=== PATIENT | male | born 1995 | race Caucasian/White ===

== ENCOUNTER 2018-11-26 14:11 | Inpatient (IN) | payer OTHER ==
[~2018-11-26] VITALS: Ht 170.2 cm; Wt 72.8 kg
[2018-11-26] MEDS ORDERED: NICOTINE 21MG/24HR 1 EA TRANSDERMAL TD ONE (14:30)
[2018-11-26 15:10] LABS: HEMATOCRIT 42.7 % (42.0-52.0); HEMOGLOBIN 14.1 g/dl (13.5-17.5); MEAN CORPUSCULAR HEMOGLOBIN 29.6 pg (27.0-33.0); MEAN CORPUSCULAR VOLUME 89.7 fl (80.0-96.0); PLATELET COUNT, AUTOMATED 246 10^3/uL (150-450); RED BLOOD COUNT 4.76 10^6/uL (4.30-6.10); WHITE BLOOD COUNT 5.3 10^3/uL (4.0-10.0)
[2018-11-26 15:29] LABS: AMPHETAMINES LEVEL URINE NEGATIVE (NEGATIVE); BARBITURATES URINE NEGATIVE (NEGATIVE); BENZODIAZEPINES URINE NEGATIVE (NEGATIVE); CANNABINOIDS URINE NEGATIVE (NEGATIVE); COCAINE METABOLITE URINE NEGATIVE (NEGATIVE); METHADONE URINE NEGATIVE (NEGATIVE); OPIATES URINE NEGATIVE (NEGATIVE); PHENCYCLIDINE URINE NEGATIVE (NEGATIVE)
[2018-11-26 15:47] LABS: ACETAMINOPHEN LEVEL < 2.0 UG/ML (10.0-30.0); ALBUMIN 3.9 GM/DL (3.2-5.2); ALT/SGPT 19 U/L (12-78); BILIRUBIN,DIRECT < 0.1 MG/DL (0.0-0.2); BILIRUBIN,TOTAL 0.3 MG/DL (0.2-1.0); BLOOD UREA NITROGEN 18 MG/DL (7-18); CALCIUM LEVEL 8.7 MG/DL (8.5-10.1); CARBON DIOXIDE LEVEL 28 MEQ/L (21-32); CHLORIDE LEVEL 108 MEQ/L (98-107); CREATININE FOR GFR 1.07 MG/DL (0.70-1.30); ETHYL ALCOHOL (ETHANOL) < 0.003 % (0.000-0.010); GLUCOSE, FASTING 118 MG/DL (70-100); POTASSIUM SERUM 4.1 MEQ/L (3.5-5.1); SALICYLATE LEVEL < 1.7 MG/DL (5.0-30.0); SODIUM LEVEL 142 MEQ/L (136-145); THYROID STIMULATING HORMONE 0.841 uIU/ML (0.463-3.98); TOTAL PROTEIN 6.9 GM/DL (6.4-8.2)
[2018-11-26] MEDS ORDERED: ACETAMINOPHEN TAB 650MG DOSE (2X325MG) PO PRN (16:30)
[2018-11-26] MEDS ORDERED: MAALOX 30 ML SUSP *UDC PO PRN (16:30)
[2018-11-26] MEDS ORDERED: MOM 30ML SUSPENSION UDC PO PRN (16:30)
[2018-11-26] MEDS ORDERED: IBUPOTC PO (16:50)
[2018-11-26 18:30] VITALS: BP 127/71
[2018-11-26] MEDS: traZODone 50 MG TAB PO PRN (21:50)
[2018-11-27 06:00] VITALS: BP 108/60
[2018-11-27] MEDS: NICOTINE 21MG/24HR 1 EA TRANSDERMAL TD SCH (10:05)
--- NOTE | 2018-11-27 10:13 | HPEPDOC ---
[facility] Medical History & Physical Date of Admission Nov 26, 2018 History and Physical PCP: [facility] ATTENDING: Dr. Iman Stephenson HPI: 22[facility]M [facility] for unspecified depressive disorder, being medically examined today. No acute medical complaints today. Reported attempting suicide 2 days ago by hanging. States he was hanging and had LOC but woke up on the floor. Denies dysarthria, dysphagia, neck pain. Denies any fevers, chills, weakness, fatigue, DAY, CP, SOB, cough, palpitations, abdominal pain, N/V/D or changes in bowel or bladder habits. PMHx: anxiety depression H/O SI/SA 2 days ago, hanging. PSHX: denies SOCHX: Resides in: [facility], from [facility]. Marital Status: single Kids: none Employment: Active duty Tobacco use: 1 ppd ETOH: 2-3 times per week 15-20 drinks Illicit Drugs: Denies IV Drug Use: Denies Tattoos done unprofessionally: Denies FAMHX: Mother: Alive, well Father: unknown Siblings: Alive, well Children: Alive, well Unexpected deaths due to medical reasons: None. ROS: As noted in HPI, otherwise 11pt ROS of systems reviewed and remarkable only for remarkable for superficial laceration left AC, pt states he tried to cut himself prior to hanging. PE: GEN: 22yoM, appears stated age. Well-nourished, well developed. No acute distress. Alert and oriented x 3. Pleasant, interactive. HEENT: Normocephalic, atraumatic. Pupils are equal, round, and reactive to light. Extraocular movements are intact. No nystagmus appreciated. Sclera are nonicteric. Conjunctiva without injection. Nose midline. Nasal turbinates without bogginess. EACs both patent BL. TMs both visualized and guido with good cone of light, no bulging or erythema. No facial asymmetry. Moist mucous mem branes. Dentition fair. Pharynx pink and moist, no cobblestoning. Neck supple, trachea midline. No lymphadenopathy or thyromegaly appreciated. CHEST: Regular rate and rhythm, +S1, +S2 LUNGS: Clear to auscultation bilaterally. No wheezes, rales, or rhonchi. Breathing appears symmetric and easy. Patient is speaking in full sentences. No accessory muscle use. ABD: Round, soft, non-tender, non-distended. +Bowel sounds throughout. No rebound or guarding. No costovertebral angle tenderness. EXT: Pulses 2+ bilaterally dorsalis pedis and radial. No lower extremity edema appreciated. SKIN: [place], dry, warm. Capillary refill <2sec. No rashes. superficial laceration noted Rt AC area. NEURO: Alert and oriented x 3. Cranial nerves III-XII are intact. No focal deficits appreciated. EKG: pending A&P: 22yoM [facility] for unspecified depressive disorder 1. Psych. Plan per Psychiatry. Obtain baseline EKG to assure the safety of psychiatric medications as they can prolong the QT interval. 2. Nicotine dependence. Patch available. 3. Attempted hanging, Pt states he woke up on the floor. Denies neck pain, dysarthria, dysphagia. There is no pain or TTP over the cervical spine. No ecchymotic area or petechiae noted. Will check CT C spine. 4. Follow up with PCP on discharge. 5. Staff member Galdino present throughout exam. Vital Signs Vital Signs Date Time Temp Pulse Resp B/P (MAP) Pulse Ox O2 Delivery O2 Flow Rate FiO2 11/27/18 06:00 97.9 67 12 108/60 (76) 11/26/18 18:30 99 Laboratory Data Labs 24H Laboratory Tests 2 11/26/18 14:57: Anion Gap 6L, Calcium Level 8.7, Aspartate Amino Transf (AST/SGOT) 12, Alanine Aminotransferase (ALT/SGPT) 19, Alkaline Phosphatase 100, Total Bilirubin 0.3, Direct Bilirubin < 0.1, Total Protein 6.9, Albumin 3.9, Albumin/Globulin Ratio 1.30, Thyroid Stimulating Hormone (TSH) 0.841, Salicylates Level < 1.7L, Urine Amphetamines Screen NEGATIVE, Urine Benzodiazepines Screen NEGATIVE, Urine Opiates Screen NEGATIVE, Urine Methadone Screen NEGATIVE, Acetaminophen Level < 2.0L, Urine Barbiturates Screen NEGATIVE, Urine Phencyclidine Screen NEGATIVE, Urine Cocaine Metabolite Screen NEGATIVE, Urine Cannabinoids Screen NEGATIVE, Ethyl Alcohol Level < 0.003 11/26/18 14:58: Nucleated Red Blood Cells % (auto) 0.0 CBC/BMP Laboratory Tests 11/26/18 14:57 11/26/18 14:58 Red Blood Count 4.76, Mean Corpuscular Volume 89.7, Mean Corpuscular Hemoglobin 29.6, Mean Corpuscular Hemoglobin Concent 33.0, Red Cell Distribution Width 12.8 Home Medications Scheduled PRN Ibuprofen (Ibuprofen) 200 Mg Tab, 600 MG PO Q6H PRN for PAIN Allergies Coded Allergies: No Known Allergies (Unverified , 11/26/18) Shanel Henry Nov 27, 2018 10:13
--- NOTE | 2018-11-27 11:00 | REP ---
CT cervical spine without contrast HISTORY: Attempted hanging COMPARISON: None There is no acute fracture or subluxation. There is no disc bulge or herniation. The spinal canal and neural foramina are patent. The intervertebral discs and vertebral bodies are normal in height. IMPRESSION: There is no acute fracture or subluxation. Electronically Signed by Yfn Coley MD 11/27/2018 10:51 A
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
--- NOTE | 2018-11-27 17:46 | ECGEPIP ---
Stationary ECG Study [facility] Test Date: 2018-11-27 Pat Name: HOLLY CLEMENTS Department: Room: [place] [address] Gender: M Research Editor: CORWIN : 1995 Requested By: Shanel Henry Order Number: [id number] Reading MD: Abhishek Rdz Measurements Intervals [place] Rate: 72 P: 68 RI: 155 QRS: 61 QRSD: 82 T: 57 QT: 326 QTc: 359 Interpretive Statements Normal sinus rhythm with sinus arrhythmia Incomplete right bundle branch block, likely physiologic for age Early repolarization Comparison tracing not available Electronically Signed On 11-27-2018 17:46:06 EDT by Abhishek Rdz
[2018-11-27 18:17] VITALS: BP 112/61
[2018-11-27] MEDS: traZODone 50 MG TAB PO PRN (22:36)
[2018-11-27] MEDS: PRAZOSIN 1 MG CAP PO SCH (22:36)
[2018-11-28 06:40] VITALS: BP 83/51
[2018-11-28] MEDS: NICOTINE 21MG/24HR 1 EA TRANSDERMAL TD SCH ×2 (09:00→14:16)
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
[2018-11-28] MEDS ORDERED: SERTRALINE HCL 25 MG TABLET PO ONE (09:45)
[2018-11-28] MEDS ORDERED: traZODone 100 MG TAB PO PRN (09:45)
[2018-11-28 18:00] VITALS: BP 138/54
[2018-11-28] MEDS: PRAZOSIN 1 MG CAP PO SCH (22:01)
[2018-11-29 06:23] VITALS: BP 120/52
[2018-11-29] MEDS: NICOTINE 21MG/24HR 1 EA TRANSDERMAL TD SCH (08:35)
[2018-11-29] MEDS: SERTRALINE HCL 25 MG TABLET PO SCH (08:35)
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
[2018-11-29 18:00] VITALS: BP 125/60
[2018-11-29] MEDS ORDERED: QUEtiapine FUMARATE 25 MG TAB PO SCH (21:00)
[2018-11-29] MEDS: PRAZOSIN 1 MG CAP PO SCH (21:34)
[2018-11-30 06:28] VITALS: BP 103/56
[2018-11-30] MEDS: SERTRALINE HCL 25 MG TABLET PO SCH (08:34)
[2018-11-30] MEDS: NICOTINE 21MG/24HR 1 EA TRANSDERMAL TD SCH (08:34)
[2018-11-30 18:15] VITALS: BP 120/72
[2018-11-30] MEDS: MIRTAZAPINE 15 MG TAB PO SCH (21:47)
[2018-11-30] MEDS: PRAZOSIN 1 MG CAP PO SCH (21:47)
[2018-12-01 06:49] VITALS: BP 91/47
[2018-12-01] MEDS: SERTRALINE HCL 25 MG TABLET PO SCH (09:20)
[2018-12-01] MEDS: NICOTINE 21MG/24HR 1 EA TRANSDERMAL TD SCH (09:20)
[2018-12-01 18:07] VITALS: BP 106/59
[2018-12-01 21:49] VITALS: BP 106/59
[2018-12-01] MEDS: MIRTAZAPINE 15 MG TAB PO SCH (21:49)
[2018-12-01] MEDS: PRAZOSIN 1 MG CAP PO SCH (21:49)
[2018-12-02 06:27] VITALS: BP 128/66
[2018-12-02] MEDS: NICOTINE 21MG/24HR 1 EA TRANSDERMAL TD SCH (08:49)
[2018-12-02] MEDS: SERTRALINE HCL 25 MG TABLET PO SCH (08:49)
[2018-12-02] MEDS ORDERED: MINI1CAP PO (09:19)
[2018-12-02] MEDS ORDERED: SERT25TA PO (09:19)
[2018-12-02] MEDS ORDERED: MIRT15TA3 PO (09:19)
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
== END 2018-12-02 11:30 | disposition home or self-care (01) | DRG 881 ==
LOC: M ED 14:11 → M ED INP 16:21 → M PSY 18:15
PROVIDERS: ADMIT Psychiatry & Neurology Psychiatry; ATTEND Psychiatry & Neurology Psychiatry
DX: F32.9 Major depressive disorder, single episode, unspecified (principal); F10.94 Alcohol use, unspecified with alcohol-induced mood disorder; R45.851 Suicidal ideations; F43.21 Adjustment disorder with depressed mood; F17.200 Nicotine dependence, unspecified, uncomplicated

== ENCOUNTER 2019-04-18 11:48 | Inpatient (IN) | payer OTHER ==
[~2019-04-18] VITALS: Ht 170.2 cm; Wt 74.2 kg
[~2019-04-18 11:48] MED LIST: IBUPOTC PO; MINI1CAP PO; MIRT15TA3 PO; SERT25TA85 PO
[2019-04-18 12:26] LABS: HEMATOCRIT 46.9 % (42.0-52.0); MEAN CORPUSCULAR HEMOGLOBIN 30.1 pg (27.0-33.0); MEAN CORPUSCULAR HGB CONC 34.1 g/dl (32.0-36.5); MEAN CORPUSCULAR VOLUME 88.3 fl (80.0-96.0); PLATELET COUNT, AUTOMATED 261 10^3/uL (150-450); RED BLOOD COUNT 5.31 10^6/uL (4.30-6.10); WHITE BLOOD COUNT 6.5 10^3/uL (4.0-10.0)
[2019-04-18 12:55] LABS: AMPHETAMINES LEVEL URINE NEGATIVE (NEGATIVE); BARBITURATES URINE NEGATIVE (NEGATIVE); BENZODIAZEPINES URINE NEGATIVE (NEGATIVE); CANNABINOIDS URINE NEGATIVE (NEGATIVE); COCAINE METABOLITE URINE NEGATIVE (NEGATIVE); METHADONE URINE NEGATIVE (NEGATIVE); OPIATES URINE NEGATIVE (NEGATIVE); PHENCYCLIDINE URINE NEGATIVE (NEGATIVE)
[2019-04-18 13:05] LABS: ACETAMINOPHEN LEVEL < 2.0 UG/ML (10.0-30.0); ALBUMIN 4.4 GM/DL (3.2-5.2); ALT/SGPT 18 U/L (12-78); BILIRUBIN,DIRECT 0.1 MG/DL (0.0-0.2); BILIRUBIN,TOTAL 0.2 MG/DL (0.2-1.0); BLOOD UREA NITROGEN 11 MG/DL (7-18); CALCIUM LEVEL 9.1 MG/DL (8.5-10.1); CARBON DIOXIDE LEVEL 29 MEQ/L (21-32); CHLORIDE LEVEL 107 MEQ/L (98-107); ETHYL ALCOHOL (ETHANOL) 0.205 % (0.000-0.010); GLOMERULAR FILTRATION RATE > 60.0 (>60); GLUCOSE, FASTING 82 MG/DL (70-100); POTASSIUM SERUM 4.2 MEQ/L (3.5-5.1); SALICYLATE LEVEL < 1.7 MG/DL (5.0-30.0); SODIUM LEVEL 143 MEQ/L (136-145); THYROID STIMULATING HORMONE 0.607 uIU/ML (0.358-3.740); TOTAL PROTEIN 7.6 GM/DL (6.4-8.2)
[2019-04-18] MEDS ORDERED: NICOTINE 21MG/24HR 1 EA TRANSDERMAL TD ONE (18:45)
[2019-04-18] MEDS ORDERED: ACET1TAB55 PO (18:52)
[2019-04-18] MEDS ORDERED: MAALOX 30 ML SUSP *UDC PO PRN (19:00)
[2019-04-18] MEDS ORDERED: LORazepam 2 MG TAB PO PRN (19:00)
[2019-04-18] MEDS ORDERED: MOM 30ML SUSPENSION UDC PO PRN (19:00)
[2019-04-18] MEDS: THIAMINE 100 MG TAB PO SCH (21:29)
[2019-04-18] MEDS: ACETAMINOPHEN TAB 650MG DOSE (2X325MG) PO PRN (21:30)
[2019-04-18 21:51] VITALS: BP 120/75
[2019-04-19] MEDS: traZODone 50 MG TAB PO PRN (00:02)
[2019-04-19 06:51] VITALS: BP 109/51
--- NOTE | 2019-04-19 08:43 | REP ---
Clinical: Pain. Technique: AP, lateral, open mouth views of the cervical spine. Findings: Alignment and lordosis maintained. Vertebral bodies intact. No acute fracture / compression injury or subluxation. No significant degenerative changes. Impression: Normal, age-appropriate cervical spine radiographs. Electronically Signed by Jair Boo MD 04/19/2019 08:34 A
[2019-04-19] MEDS: THIAMINE 100 MG TAB PO SCH ×2 (09:50→22:24)
[2019-04-19] MEDS: MULTIVITAMINS/MINERALS THERAP 1 TAB PO SCH (09:50)
[2019-04-19] MEDS: FOLIC ACID 1 MG TAB PO SCH (09:50)
--- NOTE | 2019-04-19 10:17 | HPEPDOC ---
[facility] Medical History & Physical Date of Admission Apr 19, 2019 Date of Service: Apr 19, 2019 History and Physical CHIEF COMPLAINT: decreased health analyst in his hands s/p physical therapy x 3months HISTORY OF PRESENTING ILLNESS: 23yoM admitted to [facility] for anxiety, depression, suicidal thoughts, suicide attempt by hanging,chronic cervical neck pain, previously admitted to psychiatric unit, complains of decreased health analyst in both hands, and shooting pain from his neck down his right arm. He had been evaluated for this in the [employer] a few months ago with an Xray, but he did not complete his physical therapy or had any followup with his medical provider for re-assessment. Pt denies having difficulty eating, able to use his utensils, hold his beverages, and write without changes in his penmanship. He is able to perform his ADL's without difficulty. He rates the radicular shooting pain as 8/10 on pain scale, lasts only a few minutes, and subsides, unchanged by position, or ambulation. "They don't give me much for pain." He gives permission to recheck xray of the cervical spine, and MRI. PMHx: anxiety depression H/O SI/SA 2 days ago, hanging. chronic neck pain PSHX: denies SOCHX: Resides in: [facility], from [facility]. Marital Status: single Kids: none Employment: Active duty Tobacco use: 1 ppd ETOH: 2-3 times per week 15-20 drinks Illicit Drugs: Denies IV Drug Use: Denies Tattoos done unprofessionally: Denies FAMHX: Mother: Alive, well Father: unknown Siblings: Alive, well Children: Alive, well Unexpected deaths due to medical reasons: None. ROS: As noted in HPI, otherwise 11pt ROS of systems reviewed and remarkable only for remarkable for superficial laceration left AC, pt states he tried to cut himself prior to hanging. PE: vitals: pls see below GEN: 23yoM, appears stated age. Well-nourished, well developed. No acute distress. Alert and oriented x 3. Pleasant, interactive. HEENT: Normocephalic, atraumatic. Pupils are equal, round, and reactive to light. Extraocular movements are intact. No nystagmus appreciated. Sclera are nonicteric. Conjunctiva without injection. Nose midline. Nasal turbinates without bogginess. EACs both patent BL. TMs both visualized and guido with good cone of light, no bulging or erythema. No facial asymmetry. Moist mucous membra martha. Dentition fair. Pharynx pink and moist, no cobblestoning. Neck supple, trachea midline. No lymphadenopathy or thyromegaly appreciated. CHEST: Regular rate and rhythm, +S1, +S2 LUNGS: Clear to auscultation bilaterally. No wheezes, rales, or rhonchi. Breathing appears symmetric and easy. Patient is speaking in full sentences. No accessory muscle use. ABD: Round, soft, non-tender, non-distended. +Bowel sounds throughout. No rebound or guarding. No costovertebral angle tenderness. EXT: Pulses 2+ bilaterally dorsalis pedis and radial. No lower extremity edema appreciated. SKIN: [place], dry, warm. Capillary refill <2sec. No rashes. superficial laceration noted Rt AC area. NEURO: Alert and oriented x 3. Cranial nerves III-XII are intact. No focal deficits appreciated. motor 5/5 strength b/l UE and LE. hand script girl are intact without weakness. no dysmetria on finger to nose testing. no paresthesias b/l UE and LE. gait normal. No tenderness along cervical or thoracic spine, flexion, extension of the cervical spine intact. A&P: 23yoM admitted to [facility] for anxiety, depression, suicidal thoughts, suicide attempt by hanging,chronic cervical neck pain, previously admitted to psychiatric unit, complains of decreased health analyst in both hands, and shooting pain from his neck down his right arm. He had been evaluated for this in the [employer] a few months ago with an Xray, but he did not complete his physical therapy or had any followup with his medical provider for re-assessment. Pt denies having difficulty eating, able to use his utensils, hold his beverages, and write without changes in his penmanship. He is able to perform his ADL's without difficulty. He rates the radicular shooting pain as 8/10 on pain scale, lasts only a few minutes, and subsides, unchanged by position, or ambulation. "They don't give me much for pain." He gives permission to recheck xray of the cervical spine, and MRI. chronic neck pain -pt c/o radicular symptoms, but physical examination is unremarkable for my elopathy -obtain xray of cervical spine, MRI cervical spine to rule out nerve compression -outpt referral to orthopedic surgeon Dr. marissa elise at [facility] if persistent symptoms, outpt physical therapy Depression -managed by primary team anxiety -managed by psychiatrist History of SI, SA -managed by primary team History of Tobacco abuse -cessation counselling -replacement therapy [facility] Staff member present throughout exam. Vital Signs Vital Signs Date Time Temp Pulse Resp B/P (MAP) Pulse Ox O2 Delivery O2 Flow Rate FiO2 04/19/19 06:51 97.6 50 12 109/51 (70) 04/18/19 21:51 97 04/18/19 12:29 Room Air Laboratory Data Labs 24H Laboratory Tests 2 04/18/19 12:05: Urine Amphetamines Screen NEGATIVE, Urine Benzodiazepines Screen NEGATIVE, Urine Opiates Screen NEGATIVE, Urine Methadone Screen NEGATIVE, Urine Barbiturates Screen NEGATIVE, Urine Phencyclidine Screen NEGATIVE, Urine Cocaine Metabolite Screen NEGATIVE, Urine Cannabinoids Screen NEGATIVE 04/18/19 12:10: Nucleated Red Blood Cells % (auto) 0.0, Anion Gap 7L, Glomerular Filtration Rate > 60.0, Calcium Level 9.1, Aspartate Amino Transf (AST/SGOT) 17, Alanine Ami notransferase (ALT/SGPT) 18, Alkaline Phosphatase 85, Total Bilirubin 0.2, Direct Bilirubin 0.1, Total Protein 7.6, Albumin 4.4, Albumin/Globulin Ratio 1.38, Thyroid Stimulating Hormone (TSH) 0.607, Salicylates Level < 1.7L, Acetaminophen Level < 2.0L, Ethyl Alcohol Level 0.205H CBC/BMP Laboratory Tests 04/18/19 12:10 Red Blood Count 5.31, Mean Corpuscular Volume 88.3, Mean Corpuscular Hemoglobin 30.1, Mean Corpuscular Hemoglobin Concent 34.1, Red Cell Distribution Width 12.7 Home Medications Scheduled PRN Acetaminophen (Acetaminophen) 325 Mg Tablet, 650 MG PO Q4H PRN for BACK PAIN Allergies Coded Allergies: No Known Allergies (Unverified , 11/26/18) A-FIB/CHADSVASC A-FIB History Current/History of A-Fib/PAF?: No Current PO Anticoag Therapy: No ANDREE DC MD Apr 19, 2019 08:05
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
--- NOTE | 2019-04-19 11:41 | REPVR ---
EXAM: MR Cervical Spine Without Contrast EXAM DATE/TIME: 04/19/2019 10:57 AM CLINICAL HISTORY: 23 years old, male; Numbness and weakness; Additional info: Right arm paresthesias, decreased echo vascular technologist , radiculopathy TECHNIQUE: Imaging protocol: Multiplanar magnetic resonance images of the cervical spine without contrast. COMPARISON: CR Spine,Cervical 2 or 3 views 04/19/2019 8:30 AM FINDINGS: Vertebrae: Unremarkable. Spinal cord: Normal signal. No cord compression. C2-C3: No significant disc disease. No significant spinal stenosis. C3-C4: No significant disc disease. No significant spinal stenosis. C4-C5: No significant disc disease. No significant spinal stenosis. C5-C6: No significant disc disease. No significant spinal stenosis. C6-C7: No significant disc disease. No significant spinal stenosis. C7-T1: No significant disc disease. No significant spinal stenosis. Soft tissues: Unremarkable. IMPRESSION: Unremarkable spine. Electronically signed by: Kavin Houser On 04/19/2019 11:40:46 AM
[2019-04-19] MEDS: NICOTINE 21MG/24HR 1 EA TRANSDERMAL TD PRN (12:08)
[2019-04-19 16:37] VITALS: BP 121/56
[2019-04-19 18:20] VITALS: BP 121/56
[2019-04-20 06:52] VITALS: BP 119/64
[2019-04-20] MEDS: MULTIVITAMINS/MINERALS THERAP 1 TAB PO SCH (09:50)
[2019-04-20] MEDS: NICOTINE 21MG/24HR 1 EA TRANSDERMAL TD PRN (09:51)
[2019-04-20] MEDS: FOLIC ACID 1 MG TAB PO SCH (09:51)
[2019-04-20] MEDS: THIAMINE 100 MG TAB PO SCH ×2 (09:51→21:50)
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
[2019-04-20 14:59] VITALS: BP 114/57
[2019-04-20 18:24] VITALS: BP 114/57
[2019-04-20] MEDS: traZODone 50 MG TAB PO PRN (22:31)
[2019-04-21 06:51] VITALS: BP 99/54
[2019-04-21 08:00] VITALS: BP 123/62
[2019-04-21] MEDS: THIAMINE 100 MG TAB PO SCH (09:00)
[2019-04-21] MEDS: MULTIVITAMINS/MINERALS THERAP 1 TAB PO SCH (09:00)
[2019-04-21] MEDS: FOLIC ACID 1 MG TAB PO SCH (09:00)
--- NOTE | 2019-04-21 10:50 | MHIPNPDOC ---
[facility] Progress Note Progress Note DATE OF SERVICE: 04/21/19 HISTORY: Patient is a 23 -year-old , AD, male, with history of alcohol use d/o, depression, previous admission [facility] 11/2018 for similar reasons who was brought to ED by MP's after pt showed up to their station heavily intoxicating and endorsing SI with vague plan to hang himself at some nonspecific point/time per ED. Pt in ED endorsed many psychosocial stressors that cause him to drink alcohol 3-4 times a week "as much as he can" to self medicate his stress due to d/c 05/05/19 for misconduct and has no plans for what he's going to do once he is d/c, hasn't lived at home since he was 19y/o. Pt also stated in ED that he had gone to [facility] after last d/c twice but was then dropped, continues to go to [facility] although drinks alcohol even though in program. His Bal was 205 on admission. Pt seen briefly this am as on his way to get MRI of his C-Spine. States he's doing ok and slept well last night. Is pleasant and cooperative. Appears euthymic and calm. Denies current SI/HI, hallucinations, delusions. Feels safe here. Will place on ciwa protocol for alcohol withdrawal, vistartil prn anxiety and zoloft for mood and anxiety, risks/benefits discussed for all meds. VITAL SIGNS: See below. NEW TEST RESULTS: See below. C-Spine MRI IMPRESSION: Unremarkable spine. Noncontrast CT C Spine Impression: Normal, age-appropriate cervical spine radiographs. CURRENT MEDICATIONS: See below. MENTAL STATUS EXAMINATION: General Appearance: well groomed, appears stated age, hospital scrubs/clothing Build: average Demeanor: cooperative Eye Contact: limited, fatigued Activity: average Behavior: cooperative Speech: clear, spontaneous, reg/rate,rhythm,volume Mood: euthymic, other (fatigued) Mood "down" Affect: constricted, blunted, euthymic, appropriate, congruent Thought Process: logical/linear, intact Thought Content (Delusions): none reported, denies SI, HI, AVH Thought Content (Other): none reported Thought Content (Aggressive): none reported Perception (Hallucinations): none reported Perception (Other): none reported Cognition (Impairment of): none reported Cognition(Intelligence Est.): average Oriented: Awake, Alert, Oriented times three Insight: fair Judgment: Fair Psychosis: Denies DIAGNOSES: Depression Unspecified r/o substance induced depression secondary to alcohol use alcohol use d/o ASSESSMENT:Pt seen and states that his mood is "down" today and is agreeable to increasing zoloft to help. Denies symptoms of alcohol withdrawal and not required ativan for withdrawal symptoms thru out stay. States he slept well last night. Feels he is tolerating his medications and they're beneficial. He is attending some groups and finding them helpful. He denies SI/HI, hallucinations, delusions. Pt feels safe here. MANAGEMENT PLAN: continue plan, d/c ciwa (no symptoms alcohol w/d thru out stay), increase zoloft Medications: vistaril 50mg q6hr prn anxiety zoloft 50mg daily for mood and anxiety. TIME SPENT: 30 minutes. Vital Signs Vital Signs Date Time Temp Pulse Resp B/P (MAP) Pulse Ox O2 Delivery O2 Flow Rate FiO2 04/21/19 06:51 97.8 58 12 99/54 (69) 04/18/19 21:51 97 04/18/19 12:29 Room Air Current Medications Current Medications Medications (Trade) Dose Ordered Sig/Omero Route PRN Reason Start Time Stop Time Status Last Admin Dose Admin Acetaminophen (Tylenol Tab) 650 mg Q6HP PRN PO HEADACHE or DISCOMFORT 04/18/19 19:00 04/18/19 21:30 Al Hydrox/Mg Hydrox/Simethicone (Mylanta) 30 ml Q4HP PRN PO HEARTBURN/INDIGESTION 04/18/19 19:00 Folic Acid (Folic Acid) 1 mg DAILY PO 04/19/19 09:00 04/20/19 09:51 Home Med (Med Rec Complete!) ASDIRECTED XX 04/18/19 19:00 04/18/19 19:00 DC Lorazepam (Ativan) 2 mg ASDIRECTED PRN PO SEE PROTOCOL 04/18/19 19:00 Cancel Magnesium Hydroxide (Milk Of Magnesia) 30 ml DAILYPRN PRN PO CONSTIPATION 04/18/19 19:00 Multivitamins (Theragram-M) 1 tab DAILY PO 04/19/19 09:00 04/20/19 09:50 Nicotine (Nicoderm Cq 21mg) 1 patch DAILYPRN PRN TD NICOTINE WITHDRAWAL 04/19/19 09:00 04/20/19 09:51 Thiamine HCl (Thiamine HCl) 100 mg BID PO 04/18/19 21:00 04/21/19 20:59 04/20/19 21:50 Trazodone HCl (Desyrel) 50 mg QHSP PRN PO INSOMNIA 04/18/19 19:15 04/20/19 22:31 Allergies Coded Allergies: No Known Allergies (Unverified , 11/26/18) NICOLE HILLIARD DO Apr 21, 2019 10:50
[2019-04-21] MEDS ORDERED: SERTRALINE HCL 50 MG TAB PO ONE (11:00)
[2019-04-21] MEDS: NICOTINE 21MG/24HR 1 EA TRANSDERMAL TD PRN (11:13)
[2019-04-21 18:16] VITALS: BP 131/79
[2019-04-21] MEDS: traZODone 50 MG TAB PO PRN (21:16)
[2019-04-22 06:34] VITALS: BP 107/52
[2019-04-22] MEDS: FOLIC ACID 1 MG TAB PO SCH (08:54)
[2019-04-22] MEDS: MULTIVITAMINS/MINERALS THERAP 1 TAB PO SCH (08:54)
[2019-04-22] MEDS: SERTRALINE HCL 50 MG TAB PO SCH (08:54)
--- NOTE | 2019-04-22 09:41 | MHIPNPDOC ---
[facility] Progress Note Progress Note DATE OF SERVICE: 04/22/19 HISTORY: Patient is a 23 -year-old , AD, male, with history of alcohol use d/o, depression, previous admission [facility] 11/2018 for similar reasons who was brought to ED by MP's after pt showed up to their station heavily intoxicating and endorsing SI with vague plan to hang himself at some nonspecific point/time per ED. Pt in ED endorsed many psychosocial stressors that cause him to drink alcohol 3-4 times a week "as much as he can" to self medicate his stress due to d/c 05/05/19 for misconduct and has no plans for what he's going to do once he is d/c, hasn't lived at home since he was 19y/o. Pt also stated in ED that he had gone to [facility] after last d/c twice but was then dropped, continues to go to [facility] although drinks alcohol even though in program. His Bal was 205 on admission. Pt seen briefly this am as on his way to get MRI of his C-Spine. States he's doing ok and slept well last night. Is pleasant and cooperative. Appears euthymic and calm. Denies current SI/HI, hallucinations, delusions. Feels safe here. Will place on ciwa protocol for alcohol withdrawal, vistartil prn anxiety and zoloft for mood and anxiety, risks/benefits discussed for all meds. VITAL SIGNS: See below. NEW TEST RESULTS: See below. C-Spine MRI IMPRESSION: Unremarkable spine. Noncontrast CT C Spine Impression: Normal, age-appropriate cervical spine radiographs. CURRENT MEDICATIONS: See below. MENTAL STATUS EXAMINATION: General Appearance: well groomed, appears stated age, hospital scrubs/clothing Build: average Demeanor: cooperative Eye Contact: good Activity: average Behavior: cooperative Speech: clear, spontaneous, reg/rate,rhythm,volume Mood: euthymic, full range Mood "alright" Affect: euthymic, appropriate, congruent Thought Process: logical/linear, intact Thought Content (Delusions): none reported, denies SI, HI, AVH Thought Content (Other): none reported Thought Content (Aggressive): none reported Perception (Hallucinations): none reported Perception (Other): none reported Cognition (Impairment of): none reported Cognition(Intelligence Est.): average Oriented: Awake, Alert, Oriented times three Insight: fair Judgment: Fair Psychosis: Denies DIAGNOSES: Depression Unspecified r/o substance induced depression secondary to alcohol use alcohol use d/o ASSESSMENT:Pt seen and states that his mood is "alright" today and is tolerating increase in zoloft well. Denies symptoms of alcohol withdrawal and not required ativan for withdrawal symptoms thru out stay. States he slept well last night. Feels he is tolerating his medications and they're beneficial. He is attending some groups and finding them helpful. He denies SI/HI, hallucinations, delusions. Pt feels safe here. MANAGEMENT PLAN: continue plan, d/c ciwa (no symptoms alcohol w/d thru out stay ), increase zoloft Medications: vistaril 50mg q6hr prn anxiety zoloft 50mg daily for mood and anxiety. TIME SPENT: 30 minutes. Vital Signs Vital Signs Date Time Temp Pulse Resp B/P (MAP) Pulse Ox O2 Delivery O2 Flow Rate FiO2 04/22/19 06:34 97.8 58 12 107/52 (70) 04/18/19 21:51 97 04/18/19 12:29 Room Air Current Medications Current Medications Medications (Trade) Dose Ordered Sig/Omero Route PRN Reason Start Time Stop Time Status Last Admin Dose Admin Acetaminophen (Tylenol Tab) 650 mg Q6HP PRN PO HEADACHE or DISCOMFORT 04/18/19 19:00 04/18/19 21:30 Al Hydrox/Mg Hydrox/Simethicone (Mylanta) 30 ml Q4HP PRN PO HEARTBURN/INDIGESTION 04/18/19 19:00 Folic Acid (Folic Acid) 1 mg DAILY PO 04/19/19 09:00 04/20/19 09:51 Home Med (Med Rec Complete!) ASDIRECTED XX 04/18/19 19:00 04/18/19 19:00 DC Lorazepam (Ativan) 2 mg ASDIRECTED PRN PO SEE PROTOCOL 04/18/19 19:00 Cancel Magnesium Hydroxide (Milk Of Magnesia) 30 ml DAILYPRN PRN PO CONSTIPATION 04/18/19 19:00 Multivitamins (Theragram-M) 1 tab DAILY PO 04/19/19 09:00 04/20/19 09:50 Nicotine (Nicoderm Cq 21mg) 1 patch DAILYPRN PRN TD NICOTINE WITHDRAWAL 04/19/19 09:00 04/21/19 11:13 Sertraline HCl (Zoloft) 50 mg DAILY PO 04/22/19 09:00 04/22/19 08:54 Thiamine HCl (Thiamine HCl) 100 mg BID PO 04/18/19 21:00 04/21/19 20:59 DC 04/20/19 21:50 Trazodone HCl (Desyrel) 50 mg QHSP PRN PO INSOMNIA 04/18/19 19:15 04/21/19 21:16 Allergies Coded Allergies: No Known Allergies (Unverified , 11/26/18) NICOLE HILLIARD DO Apr 22, 2019 09:41
[2019-04-22] MEDS: NICOTINE 21MG/24HR 1 EA TRANSDERMAL TD PRN (10:34)
[2019-04-22 18:00] VITALS: BP 120/66
[2019-04-22 21:57] VITALS: BP 120/66
[2019-04-23 06:25] VITALS: BP 105/57
[2019-04-23 06:32] VITALS: BP 105/58
[2019-04-23] MEDS ORDERED: SERT-155 PO (08:49)
[2019-04-23] MEDS ORDERED: VIST25CA PO (08:49)
[2019-04-23] MEDS ORDERED: TRAZ-252 PO (08:49)
--- NOTE | 2019-04-23 08:50 | MHDSPDOC ---
[facility] Discharge Summary Discharge Summary DATE OF ADMISSION: Apr 18, 2019 at 6:58 pm DATE OF DISCHARGE: Apr 23, 2019 DISCHARGE DIAGNOSES: Depression Unspecified r/o substance induced depression secondary to alcohol use alcohol use d/o REASON FOR ADMISSION: Patient is a 23 -year-old , AD, male, with history of alcohol use d/o, depression, previous admission [facility] 11/2018 for similar reasons who was brought to ED by MP's after pt showed up to their station heavily intoxicating and endorsing SI with vague plan to hang himself at some nonspecific point/time per ED. Pt in ED endorsed many psychosocial stressors that cause him to drink alcohol 3-4 times a week "as much as he can" to self medicate his stress due to d/c 05/05/19 for misconduct and has no plans for what he's going to do once he is d/c, hasn't lived at home since he was 19y/o. Pt also stated in ED that he had gone to [facility] after last d/c twice but was then dropped, continues to go to [facility] although drinks alcohol even though in program. His Bal was 205 on admission. Pt seen briefly this am as on his way to get MRI of his C-Spine. States he's doing ok and slept well last night. Is pleasant and cooperative. Appears euthymic and calm. Denies current SI/HI, hallucinations, delusions. Feels safe here. Will place on ciwa protocol for alcohol withdrawal, vistartil prn anxiety and zoloft for mood and anxiety, risks/benefits discussed for all meds. CONSULTANTS INVOLVED: none TEST RESULTS: See below. C-Spine MRI IMPRESSION: Unremarkable spine. Noncontrast CT C Spine Impression: Normal, age-appropriate cervical spine radiographs. TREATMENT AND PROGRESS ON THE UNIT : Pt was admitted to [facility], seen for psychiatr ic assessment and started on a ciwa protocol for alcohol withdrawal but didn't require ativan during his stay due to not experiencing withdrawal symptoms. He was started on zoloft 50mg daily for mood. He was provided vistaril 25mg q6hr prn anxiety and trazodone 50mg qhs prn insomnia. Pt found his medications beneficial and tolerated them well. He attended groups daily during his stay. His symptoms improved with treatment. On day of discharge he denied depression, anxiety, insomnia, SI/HI, hallucinations, delusions, alcohol withdrawal. He was discharged home after Nikki meeting with follow-up at [facility] and [facility]. He felt safe for discharge. DISCHARGE ASSESSMENT: Pt seen and states that his mood is "good" today and is looking forward to going home today with his Nikki. He is tolerating his zoloft well and feels it's beneficial for his mood. Denies symptoms of alcohol withdrawal and not required ativan for withdrawal symptoms thru out stay. States he slept well last night. Feels he is tolerating his medications and they're beneficial. He is attending some groups and finding them helpful. He denies depression, anxiety, insomnia. SI/HI, hallucinations, delusions, alcohol withdrawal. Pt feels safe to be discharged home with Nikki. MENTAL STATUS EXAMINATION ON DISCHARGE: General Appearance: well groomed, appears stated age, hospital scrubs/clothing Build: average Demeanor: cooperative Eye Contact: good Activity: average Behavior: cooperative Speech: clear, spontaneous, reg/rate,rhythm,volume Mood: euthymic, full range Mood "good" Affect: euthymic, appropriate, congruent Thought Process: logical/linear, intact Thought Content (Delusions): none reported, denies SI, HI, AVH Thought Content (Other): none reported Thought Content (Aggressive): none reported Perception (Hallucinations): none reported Perception (Other): none reported Cognition (Impairment of): none reported Cognition(Intelligence Est.): average Oriented: Awake, Alert, Oriented times three Insight: good Judgment: good Psychosis: Denies MEDICATIONS ON DISCHARGE: vistaril 50mg q6hr prn anxiety zoloft 50mg daily for mood and anxiety trazodone 50mg qhs prn insomnia. PLAN/FOLLOWUP ARRANGEMENTS: D/c home with Nikki with follow-up at [facility] and [facility]. The amount of time spent in the coordination of care for this patient was approximately 30 minutes. Vital Signs/I&Os Vital Signs Date Time Temp Pulse Resp B/P (MAP) Pulse Ox O2 Delivery O2 Flow Rate FiO2 04/23/19 06:32 97.1 57 12 105/58 (74) 04/18/19 21:51 97 04/18/19 12:29 Room Air Medications Scheduled PRN Acetaminophen (Acetaminophen) 325 Mg Tablet, 650 MG PO Q4H PRN for BACK PAIN, (Reported) Allergies Coded Allergies: No Known Allergies (Unverified , 11/26/18) NICOLE HILLIARD DO Apr 23, 2019 8:50 am
[2019-04-23] MEDS: SERTRALINE HCL 50 MG TAB PO SCH (08:56)
[2019-04-23] MEDS: MULTIVITAMINS/MINERALS THERAP 1 TAB PO SCH (08:56)
[2019-04-23] MEDS: FOLIC ACID 1 MG TAB PO SCH (08:56)
[2019-04-23] MEDS: ACETAMINOPHEN TAB 650MG DOSE (2X325MG) PO PRN (11:34)
[2019-04-23] MEDS: NICOTINE 21MG/24HR 1 EA TRANSDERMAL TD PRN (11:35)
== END 2019-04-23 13:55 | disposition home or self-care (01) | DRG 899 ==
LOC: M ED 11:48 → M ED INP 18:58 → M PSY 20:30
PROVIDERS: ADMIT Psychiatry & Neurology Psychiatry; ATTEND Psychiatry & Neurology Psychiatry
DX: F10.94 Alcohol use, unspecified with alcohol-induced mood disorder (principal); R45.851 Suicidal ideations; F32.9 Major depressive disorder, single episode, unspecified; M54.2 Cervicalgia; F17.200 Nicotine dependence, unspecified, uncomplicated